=== PATIENT | female | born 1960 | race Caucasian/White ===

== ENCOUNTER 2018-08-20 11:52 | Emergency (ER) | payer SELFPAY ==
[2018-08-20 12:31] VITALS: BP 152/72; PULSE 77; TEMP 98.9; BMI 29.8
--- NOTE | 2018-08-20 13:36 | PDOC ---
History of Present Illness - General Chief Complaint: Chest Pain Stated Complaint: Chest Pain Time Seen by Provider: 08/20/18 13:35 - History of Present Illness Initial Comments: [facility] Past History - Past Medical History Allergies/Adverse Reactions: Allergies Allergy/AdvReac Type Severity Reaction Status Date / Time ibuprofen Allergy Verified 08/20/18 12:07 COPD: No HTN: Yes Psychiatric Problems: Yes (anxiety) Thyroid Disease: Yes - Suicide/Smoking/Psychosocial Hx Smoking History: Former smoker Have you smoked in the past 12 months: No Information on smoking cessation initiated: No Hx Alcohol Use: No Drug/Substance Use Hx: No *Physical Exam - Vital Signs Last Vital Signs Temp Pulse Resp BP Pulse Ox 98.9 F 77 22 H 152/72 99 08/20/18 12:05 08/20/18 12:05 08/20/18 12:05 08/20/18 12:05 08/20/18 12:05 Medical Decision Making - Medical Decision Making Patient not present in room 2 08/20/18 13:42 Patient not present in waiting room, vertical area, or upon calling 08/20/18 13:51 Patient still unable to be found [facility] 08/20/18 14:18 *DC/Admit/Observation/Transfer Diagnosis at time of Disposition: Patient left before evaluation by physician - Discharge Dispostion Disposition: LEFT BEFORE [facility]UAN - Referrals Referrals: ON STAFF,NOT [Primary Care Provider] - - Patient Instructions - Post Discharge Activity
--- NOTE | 2018-08-20 14:50 | EKG ---
Test Reason : Blood Pressure : / mmHG Vent. Rate : 070 BPM Atrial Rate : 070 BPM P-R Int : 158 ms QRS Dur : 096 ms QT Int : 368 ms P-R-T Axes : 037 005 049 degrees QTc Int : 397 ms NORMAL SINUS RHYTHM NORMAL ECG NO PREVIOUS ECGS AVAILABLE Confirmed by DREW SHAVER, IVANIA ([id number]) on 08/20/2018 2:49:57 PM Referred By: Confirmed By:IVANIA RUSSELL MD
== END 2018-08-20 14:25 | disposition left against medical advice (07) ==
LOC: JER 11:52
DX: Z53.21 Procedure and treatment not carried out due to patient leaving prior to being seen by health care provider (principal)
CPT/HCPCS: 93005; 93010; 99281-25